=== PATIENT | male | born 1975 | race Caucasian/White ===

== ENCOUNTER 2024-04-28 22:39 | Inpatient (IN) | payer BC, SELFPAY ==
[2024-04-28 23:05] VITALS: BP 118/80; PULSE 86; TEMP 37; O2SAT 94
[2024-04-29 00:28] VITALS: BMI 25.8
--- NOTE | 2024-04-29 02:33 | PC.ADMIT ---
Aubrey was admitted to as a 12B on 15 minute checks. His skin check was unremarkable during skin and safety check. 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 Aubrey came to [place] for a friend's wake, went to a casino, and ended up drinking and using cocaine. He reports that he was thinking of hanging himself, so he sought help at [facility]. Aubrey reports that he smokes cigarettes and drinks a gallon of tequila daily for the last year. He is currently showing signs of alcohol withdrawal and is on a Q4 CIWA. He reported that he has a history of PTSD, Bipolar, and anxiety; he has had 5 psychiatric admissions in [place]. He has no providers, but reports he was taking seroquel recently. Aubrey was able to participate in a minimal assessment upon admission; he ate and retired to bed. Consults have been placed for addiction and NRT. Influenza has been ordered but patient is sleeping at this time and unable to accept or decline.
[2024-04-29 04:30] VITALS: BP 120/74; PULSE 65; RESP 16; TEMP 37.3; O2SAT 95
[2024-04-29] MEDS: LORazepam 1 MG TABLET PO ×4 (04:39→20:48)
[2024-04-29 08:00] VITALS: BP 119/70; PULSE 70; RESP 16; TEMP 37.3; O2SAT 95
--- NOTE | 2024-04-29 08:50 | P.HPPS_ITS ---
HPI Date of Service: 04/29/24 Chief Complaint: Depressive Disorder, Substance Use Disorder Sources of Information: patient interviewed, chart reviewed and crisis/core team assessment reviewed HPI Subjective Notes: Mariscal Warning and Conditional Voluntary Narrative: pt is a 48 yo male with hx of depression, PTSD, possibly bipolar, alcohol and cocaine use disorder who self presents to the ED for alcohol withdrawal or because he had SI. Patient is a poor historian, remains with his eyes closed, irritable in withdrawal and with very limited cooperation. Patient acknowledges that he had the suicidal thought to hang himself a few days ago but says I do not know regarding any current SI. He says he has been depressed for a couple of years but will not elaborate. Denies he is on any medications; denies AVH. Patient reports he drinks alcohol daily ( a gallon of Tequila daily for a year) but denies any history of withdrawal seizures or DTs; says uses cocaine daily. Patient says he has his own place to live here. Patient terminated interview, saying does not feel like talking about anything else this time. Patient seen on 04/29 at 15:00 Past Psychiatric History: past psych admissions (psych/detox?...5 psychiatric admissions in [place]). 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 Aubrey came to [place] for a friend's wake..., went to a casino, and ended up drinking and using cocaine. Substance History: Drinks a gal of Tequila a day for year; cocaine daily Trauma History: Deferred Diagnostics Vital Signs (24Hr): Vital Signs - 24 hr 04/28/24 23:05 04/29/24 04:30 04/29/24 08:00 Temperature 98.6 F 99.1 F 99.1 F Pulse Rate 86 65 70 Respiratory Rate 16 16 Blood Pressure 118/80 120/74 119/70 Pulse Oximetry 94 95 95 Oxygen Delivery Method Room Air Room Air BMI result Body Mass Index 25.8 Meds/Allergies Meds Home Medications ?Medication ?Instructions ?Recorded ?Confirmed ?Type No Known Home Meds 04/29/24 04/29/24 History Allergies Allergies Allergy/AdvReac Type Severity Reaction Status Date / Time No Known Allergies Allergy Verified 04/28/24 21:32 Mental Status Exam Mental Status Exam Narrative: Pt is alert and oriented; behavior is not cooperative, irritable, isolative; patient is not in distress; dressed in hospital attire, unkempt; mood is described as depressed and affect congruent; eye remained close; Speech is sparse but when he talks, normal rate, volume and prosody and not pressured; psychomotor retardation present; thought process is goal directed; Thought content is on resting; no paranoid ideations expressed; says I do not know to SI; Denies AVH and there is no evidence of perceptual disturbance. Patients insight and judgment impaired Assessment & Plan Assessment & Plan (1) Depression: Status: Acute Code(s): F32.A - Depression, unspecified (2) Alcohol abuse: Status: Acute Code(s): F10.10 - Alcohol abuse, uncomplicated (3) Cocaine abuse: Status: Acute Code(s): F14.10 - Cocaine abuse, uncomplicated (4) Alcohol withdrawal: Status: Acute Code(s): F10.939 - Alcohol use, unspecified with withdrawal, unspecified Plan pt is a 48 yo male with hx of depression, PTSD, possibly bipolar, alcohol and cocaine use disorder who self presents to the ED for alcohol withdrawal or because he had SI. Patient is a poor historian, remains with his eyes closed, irritable in withdrawal and with very limited cooperation. Patient acknowledges that he had the suicidal thought to hang himself a few days ago but says I do not know regarding any current SI. He says he has been depressed for a couple of years but will not elaborate. Denies he is on any medications; denies AVH. Patient reports he drinks alcohol daily ( a gallon of Tequila daily for a year) but denies any history of withdrawal seizures or DTs; says uses cocaine daily. Patient says he has his own place to live here. Patient terminated interview, saying does not feel like talking about anything else this time. Formulation/clinical reasoning: Patient is currently not willing to cooperate. He acknowledges depression; and is ambivalent about SI. Patient says he does not want to talk but just wants to rest while he detox is Plan: Twelve B Q 15 minute checks CIWA with p.rbg Ativan Hopefully patient will be more amenable to admission process Thiamine, folic acid Famotidine will consider gabapentin which patient says he has been on before but does not help Patient educated on: diagnosis, medication risk/benefits and substance abuse Informed Consent: understands Reason for continued inpatient stay Substantial Risk for: rapid decompensation Statement Statement: I have reviewed the history and physical and performed a pertinent examination on my patient. No changes have occurred unless specified. If the History and Physical was not performed prior to admission, the Hospitalist's service will be consulted for completing the admission physical. Time Spent With Patient Time: Total time managing care of this patient today ____ minutes.
[2024-04-29] MEDS: hydrOXYzine HCL 25 MG TABLET PO ×2 (09:00→17:06)
[2024-04-29] MEDS: Acetaminophen 325 MG TABLET 650 MG PO ×2 (09:00→17:06)
--- NOTE | 2024-04-29 11:50 | MHC.RECOVRN ---
Received Addiction Medicine consult for positive AUDIT C. Spoke with pts RN, pt not feeling well today. Plan to check in again tomorrow. Lisa Elliott APRN, aware.
[2024-04-29] MEDS: LORazepam 1 MG TABLET 2 MG PO (13:09)
--- NOTE | 2024-04-29 13:53 | HO.PM.IMCN ---
History of Present Illness Data of Consult Service Date: 04/29/24 Primary Care Provider: Unknown Physician HPI Reason for consult: Admission H&P Pt is a 48-year-old male with a PMH significant for? who is admitted to psychiatry unit for . Medical consult for admission H&P. ? Labs reviewed, significant for [facility] Social History Household Members: Other Household Members Other:: Collateral: medical record Housing: Homeless Do you presently have visiting nurse or other home services: No Patient Tobacco Use Status: Current everyday Tobacco user Tobacco use type: Cigarette Smoked in Last 30 Days: Yes e-Cigarette/Vaping Use: Never Used Patient Interested in Nicotine Replacement: Yes Patient Given Instructions on How to Stop Smoking: No Date Education Initiated: 04/29/24 Use of substances other than those prescribed or required for medical reasons: Yes Substance Use Type: Crack/Cocaine Substance Use Frequency: Occasionally Last Used Substance: Days (ago) Currently Displaying Signs/Symptoms of Drug Intoxication Withdrawal: No Advance Directives: No Advance Directives Information Provided: No Do you have thoughts of harming others: None Do you have a plan to hurt others: No Plan Recently lost weight without trying: Unsure Nutrition Risks: No Nutritional Risk Poor oral hygiene: No Meds Allergies Allergy/AdvReac Type Severity Reaction Status Date / Time No Known Allergies Allergy Verified 04/28/24 21:32 Active Medications: Current Medications Acetaminophen (Acetaminophen 325 Mg Tablet) 650 mg PO Q6H PRN PRN Reason: Headache/Pain, Scale 1-10 Last Admin: 04/29/24 09:00 Dose: 650 mg Al Hydroxide/Mg Hydroxide (Magnesium Hydrox/Alum Hydrox 30 Ml Oral.Susp) 30 ml PO Q6H PRN PRN Reason: Heartburn/Nausea Famotidine (Famotidine 20 Mg Tablet) 20 mg PO BID VEGA Folic Acid (Folic Acid 1 Mg Tablet) 1 mg PO DAILY VEGA Last Admin: 04/29/24 09:31 Dose: Not Given Hydroxyzine HCl (Hydroxyzine Hcl 25 Mg Tablet) 25 mg PO Q6H PRN PRN Reason: mild anxiety Last Admin: 04/29/24 09:00 Dose: 25 mg Lorazepam (Lorazepam 1 Mg Tablet) 1 mg PO Q2H PRN PRN Reason: ciwa 6-10 Last Admin: 04/29/24 09:00 Dose: 1 mg Lorazepam (Lorazepam 1 Mg Tablet) 2 mg PO Q2H PRN PRN Reason: ciwa 11-16 Last Admin: 04/29/24 13:09 Dose: 2 mg Lorazepam (Lorazepam 1 Mg Tablet) 3 mg PO Q2H PRN PRN Reason: ciwa 16+ Magnesium Hydroxide (Milk Of Magnesia 30 Ml Oral.Susp) 30 ml PO DAILY PRN PRN Reason: Constipation Multivitamins/Vitamin C (Multivitamin Tablet) 1 tab PO DAILY [facility] Last Admin: 04/29/24 09:31 Dose: Not Given Nicotine Polacrilex (Nicotine Polacrilex 2 Mg Gum) 4 mg BUCCAL Q2H PRN PRN Reason: Nicotine Cravings Thiamine HCl (Thiamine Hcl 100 Mg Tablet) 100 mg PO DAILY [facility] Last Admin: 04/29/24 09:31 Dose: Not Given Trazodone HCl (Trazodone Hcl 50 Mg Tablet) 50 mg PO BEDTIME MRX1 PRN PRN Reason: Insomnia Home Medications ?Medication ?Instructions ?Recorded ?Confirmed ?Last Taken ?Type No Known Home Meds 04/29/24 04/29/24 Unknown History Physical Exam Vital Signs and Narrative: Vital Signs: Last Vital Signs Temp 99.1 F 04/29/24 08:00 Pulse 70 04/29/24 08:00 Resp 16 04/29/24 08:00 BP 119/70 04/29/24 08:00 Pulse Ox 95 04/29/24 08:00 O2 Del Method Room Air 04/29/24 04:30 BMI result Body Mass Index 25.8
[2024-04-29 19:50] VITALS: BP 121/69; PULSE 61; RESP 16; TEMP 36.7; O2SAT 97
[2024-04-29] MEDS: Famotidine 20 MG TABLET PO (20:48)
--- NOTE | 2024-04-30 07:46 | HO.HSGERICON ---
History of Present Illness Data of Consult Service Date: 04/30/24 Requesting physician: Amador Vincent Primary Care Provider: Unknown Physician HPI Reason for consult: medical review Patient is a 48-year-old male, originally from [place], with past medical history of EtOH abuse, cocaine abuse (inhaled), tobacco abuse 1 pack per day for the last 30 years, PTSD and patient is edentulous. Patient would not elaborate on past medical history and was able to give short yes or no answers. Patient overall was cooperative and requested antony wallace often. Patient denies any history of IV drug use. Patient also denies any history of cancer, chronic GI issues including constipation or diarrhea, history of cancer, autoimmune disorders, or surgeries. Patient denies any history of motor vehicle accidents, traumas, gunshot wound stabbing. Patient denies any current skin infections. Patient also denies any history of hepatitis B or C, HIV or STDs. Patient denies the need to be tested for hepatitis or HIV currently. Patient is not aware of his mother or father's past medical history. Patient is agreeable to starting the nicotine patch. Per nursing staff, patient is on the psychiatric facility are able to do nicotine gum as well as the patch and the gum is currently ordered. This telegraphic typewriter operator chief order the nicotine patch Review of Systems Review of Systems: Patient denies chest pain, shortness of breath at rest or with exertion, headaches, visual changes, difficulty swallowing noting patient is edentulous, GERD, diarrhea constipation, nausea, vomiting and denies currently going through alcohol withdrawal. Patient denies any notable edema in lower legs. Patient denies any history of blood clots in the legs or lungs.Patient denies any history of IV drug use. Patient also denies any history of cancer, chronic GI issues, history of cancer, autoimmune disorders, or surgeries. Patient offers that he still has his gallbladder and appendix. Patient denies any history of motor vehicle accidents, traumas, gunshot wounds, stabbing. Patient denies any current skin infections. Patient also denies any history of hepatitis B or C, HIV or STDs. Patient denies the need to be tested for hepatitis or HIV currently. PMFSH Pertinent family history: Patient is not able to provide any family history including current information on patient's parents. Social History Household Members: Other Household Members Other:: Collateral: medical record Housing: Homeless Do you presently have visiting nurse or other home services: No Patient Tobacco Use Status: Current everyday Tobacco user Tobacco use type: Cigarette Smoked in Last 30 Days: Yes e-Cigarette/Vaping Use: Never Used Patient Interested in Nicotine Replacement: Yes Patient Given Instructions on How to Stop Smoking: No Date Education Initiated: 04/29/24 Use of substances other than those prescribed or required for medical reasons: Yes Substance Use Type: Crack/Cocaine Substance Use Frequency: Occasionally Last Used Substance: Days (ago) Currently Displaying Signs/Symptoms of Drug Intoxication Withdrawal: No Advance Directives: No Advance Directives Information Provided: No Do you have thoughts of harming others: None Do you have a plan to hurt others: No Plan Recently lost weight without trying: Unsure Nutrition Risks: No Nutritional Risk Poor oral hygiene: No Sexual orientation: Unable to collect Ebola Risk: Travel/Contact With Anyone From Affected Area/s: No Has Patient Experienced Ebola Symptoms: No Meds Allergies Allergy/AdvReac Type Severity Reaction Status Date / Time No Known Allergies Allergy Verified 04/28/24 21:32 Active Medications: Current Medications Acetaminophen (Acetaminophen 325 Mg Tablet) 650 mg PO Q6H PRN PRN Reason: Headache/Pain, Scale 1-10 Last Admin: 04/29/24 17:06 Dose: 650 mg Al Hydroxide/Mg Hydroxide (Magnesium Hydrox/Alum Hydrox 30 Ml Oral.Susp) 30 ml PO Q6H PRN PRN Reason: Heartburn/Nausea Famotidine (Famotidine 20 Mg Tablet) 20 mg PO BID [facility] Last Admin: 04/29/24 20:48 Dose: 20 mg Folic Acid (Folic Acid 1 Mg Tablet) 1 mg PO DAILY [facility] Last Admin: 04/29/24 09:31 Dose: Not Given Hydroxyzine HCl (Hydroxyzine Hcl 25 Mg Tablet) 25 mg PO Q6H PRN PRN Reason: mild anxiety Last Admin: 04/29/24 17:06 Dose: 25 mg Lorazepam (Lorazepam 1 Mg Tablet) 1 mg PO Q2H PRN PRN Reason: ciwa 6-10 Last Admin: 04/29/24 20:48 Dose: 1 mg Lorazepam (Lorazepam 1 Mg Tablet) 2 mg PO Q2H PRN PRN Reason: ciwa 11-16 Last Admin: 04/29/24 13:09 Dose: 2 mg Lorazepam (Lorazepam 1 Mg Tablet) 3 mg PO Q2H PRN PRN Reason: ciwa 16+ Magnesium Hydroxide (Milk Of Magnesia 30 Ml Oral.Susp) 30 ml PO DAILY PRN PRN Reason: Constipation Multivitamins/Vitamin C (Multivitamin Tablet) 1 tab PO DAILY [facility] Last Admin: 04/29/24 09:31 Dose: Not Given Nicotine Polacrilex (Nicotine Polacrilex 2 Mg Gum) 4 mg BUCCAL Q2H PRN PRN Reason: Nicotine Cravings Thiamine HCl (Thiamine Hcl 100 Mg Tablet) 100 mg PO DAILY [facility] Last Admin: 04/29/24 09:31 Dose: Not Given Trazodone HCl (Trazodone Hcl 50 Mg Tablet) 50 mg PO BEDTIME MRX1 PRN PRN Reason: Insomnia Home Medications ?Medication ?Instructions ?Recorded ?Confirmed ?Last Taken ?Type No Known Home Meds 04/29/24 04/29/24 Unknown History Results Labs Labs: Pt initially refused labs ECG Prior ECG tracings: not available for review Assessment and Plan (1) Alcohol abuse: Status: Acute (2) Cocaine abuse: Status: Acute (3) Edentulous: Status: Acute (4) Tobacco abuse: Status: Acute Plan 1. Alcohol Abuse -CIWA score 1, pt is on CIWA scale -pt refused labs but encourage pt to obtain labs to ensure LFTs are WNL and no other issues occurring as pt has not had any PCP care in many years -continue to follow CISD protocol to include thiamine, FA 2. Cocaine Abuse -Recommend ECG for baseline, pt denies hx of chest pain, current physical symptoms or hx of overdosing -Pt denies using IV drugs and no murmu heard on exam. No current indication for Echo -Addictions consulted per psychiatry 3. Edentulous -residential likely secondary to drug use hx -pt denies issues with swallowing, eating, BMI WNL -pt denies need for dentures 4. Toabcco Abuse -1PPD hx X30 years -no chronic issues, pt does not use inhalers prn or regularly and does not require oxygen -Pt agreeable to nicotine patch, ordered 21 mgs daily (will check with psychiatrist, unclear if there might be a risk with patch) -gum also ordered prn -exam reassuring, no indication for prn tx with inhalers, oxygen -noting pt's age, eventual CT lung screening recommended Hospitalist group will sign off as there are no acute issues currently. Recommend obtaining labs if possible. Please reconsult if needed. Total time managing care of this patient today: 35 minutes. Physical Exam Vital Signs: Last Vital Signs Temp 98.1 F 04/29/24 19:50 Pulse 61 04/29/24 19:50 Resp 16 04/29/24 19:50 BP 121/69 04/29/24 19:50 Pulse Ox 97 04/29/24 19:50 O2 Del Method Room Air 04/29/24 19:50 BMI result Body Mass Index 25.8 ALERT AND ORIENTATED X3, COOPERATIVE BUT PROVIDING SHORT YES/NO ANSWERS. NEURO: CN II-X11 INTACT, NO DEFICITS, VISUAL ACUITY INTACT, CIWA score 1 EYES: PERRLA, EOM INTACT, conjunctivae are pink ENT: HEARING INTACT, NO ISSUES WITH SWALLOWING, UVULA MIDLINE, LIPS MOIST, NARES PATENT NO EPISTAXIS CARDIAC: S1 S2 RRR, NO MURMUR, NO JVD, NO EDEMA IN LOWER EXT PULMONARY: LUNGS CLEAR TO AUSCULATION B ABDOMINAL: BS ACTIVE IN ALL 4 QUADRANTS, NO GUARDING, TENDERNESS, REBOUNDING MSK: STRENGTH 5/5 UPPER AND LOWER EXTREMITIES : NO CVA TENDERNESS NO BLADDER DISTENSION rectal and genital exam deferred EXTREMITIES: NO EDEMA IN LOWER EXTREMITIES, PT AND DP PULSES PALPABLE +2 PSYCH: MOOD FLAT. Pt calm, resting comfortably Skin: no acne, facial damon groomed, no open wounds found on exam Eyes Pupils: Equal, round and reactive pupils present Neuro Cranial nerves: Yes CN's II-XII intact bilaterally, Yes Equal, round and reactive pupils present, Yes Bilaterally intact EOM present, Yes Midline tongue present and Yes Ability to bilaterally elevate shoulders present Cognition (Neuro): normal cognition
[2024-04-30 08:00] VITALS: BP 117/58; PULSE 65; RESP 16; TEMP 36.6; O2SAT 96
[2024-04-30] MEDS: Nicotine 21 MG PATCH.TD24 TRANSDERMA (12:44)
[2024-04-30] MEDS: LORazepam 1 MG TABLET PO ×2 (12:49→20:57)
[2024-04-30] MEDS: Acetaminophen 325 MG TABLET 650 MG PO (12:51)
[2024-04-30] MEDS: Gabapentin 100 MG CAPSULE 200 MG PO ×2 (15:54→20:42)
--- NOTE | 2024-04-30 17:53 | P.PNPSI_ITS ---
Subjective Subjective Date of Service: 04/30/24 Reason For Visit: Depressive Disorder, Substance Use Disorder Interim History: Met with patient; discussed with team Patient scoring mid-range on CIWA; remains isolative. Patient still refuses to talk. He says to this typewriter aligner he does not want to talk, just wants to rest, that he was suicidal but will not discuss it further. Mental Status Exam Mental Status Exam Narrative: Pt is alert and oriented; behavior is not cooperative, irritable, isolative; patient is not in distress; dressed in hospital attire, unkempt; mood is d escribed as depressed and affect congruent; eye remained close; Speech is sparse but when he talks, normal rate, volume and prosody and not pressured; psychomotor retardation present; thought process is goal directed; Thought content is on resting; no paranoid ideations expressed; says I do not know to SI; Denies AVH and there is no evidence of perceptual disturbance. Patients insight and judgment impaired Diagnostics Vital Signs (24Hr): Vital Signs - 24 hr 04/29/24 19:50 04/30/24 08:00 Temperature 98.1 F 98 F Pulse Rate 61 65 Respiratory Rate 16 16 Blood Pressure 121/69 117/58 L Pulse Oximetry 97 96 Oxygen Delivery Method Room Air BMI result Body Mass Index 25.8 Medications Medications Current Medications Acetaminophen (Acetaminophen 325 Mg Tablet) 650 mg PO Q6H PRN PRN Reason: Headache/Pain, Scale 1-10 Last Admin: 04/30/24 12:51 Dose: 650 mg Al Hydroxide/Mg Hydroxide (Magnesium Hydrox/Alum Hydrox 30 Ml Oral.Susp) 30 ml PO Q6H PRN PRN Reason: Heartburn/Nausea Famotidine (Famotidine 20 Mg Tablet) 20 mg PO BID [facility] Last Admin: 04/30/24 12:47 Dose: Not Given Folic Acid (Folic Acid 1 Mg Tablet) 1 mg PO DAILY [facility] Last Admin: 04/30/24 12:47 Dose: Not Given Gabapentin (Gabapentin 100 Mg Capsule) 200 mg PO TID [facility] Stop: 05/02/24 23:50 Last Admin: 04/30/24 15:54 Dose: 200 mg Hydroxyzine HCl (Hydroxyzine Hcl 25 Mg Tablet) 25 mg PO Q6H PRN PRN Reason: mild anxiety Last Admin: 04/29/24 17:06 Dose: 25 mg Lorazepam (Lorazepam 1 Mg Tablet) 1 mg PO Q2H PRN PRN Reason: ciwa 6-10 Last Admin: 04/30/24 12:49 Dose: 1 mg Lorazepam (Lorazepam 1 Mg Tablet) 2 mg PO Q2H PRN PRN Reason: ciwa 11-16 Last Admin: 04/29/24 13:09 Dose: 2 mg Lorazepam (Lorazepam 1 Mg Tablet) 3 mg PO Q2H PRN PRN Reason: ciwa 16+ Magnesium Hydroxide (Milk Of Magnesia 30 Ml Oral.Susp) 30 ml PO DAILY PRN PRN Reason: Constipation Multivitamins/Vitamin C (Multivitamin Tablet) 1 tab PO DAILY [facility] Last Admin: 04/30/24 12:47 Dose: Not Given Nicotine (Nicotine 21 Mg Patch.Td24) 21 mg TRANSDERMA DAILY PRN PRN Reason: smoking cessation Last Admin: 04/30/24 12:44 Dose: 21 mg Nicotine Polacrilex (Nicotine Polacrilex 2 Mg Gum) 4 mg BUCCAL Q2H PRN PRN Reason: Nicotine Cravings Thiamine HCl (Thiamine Hcl 100 Mg Tablet) 100 mg PO DAILY [facility] Last Admin: 04/30/24 12:47 Dose: Not Given Trazodone HCl (Trazodone Hcl 50 Mg Tablet) 50 mg PO BEDTIME MRX1 PRN PRN Reason: Insomnia Allergies Allergies Allergy/AdvReac Type Severity Reaction Status Date / Time No Known Allergies Allergy Verified 04/28/24 21:32 Assessment & Plan Assessment & Plan (1) Depression: Status: Acute Code(s): F32.A - Depression, unspecified (2) Alcohol abuse: Status: Acute Code(s): F10.10 - Alcohol abuse, uncomplicated (3) Cocaine abuse: Status: Acute Code(s): F14.10 - Cocaine abuse, uncomplicated (4) Alcohol withdrawal: Status: Acute Code(s): F10.939 - Alcohol use, unspecified with withdrawal, unspecified Plan pt is a 48 yo male with hx of depression, PTSD, possibly bipolar, alcohol and cocaine use disorder who self presents to the ED for alcohol withdrawal or because he had SI. Patient is a poor historian, remains with his eyes closed, irritable in withdrawal and with very limited cooperation. Patient acknowledges that he had the suicidal thought to hang himself a few days ago but says I do not know regarding any current SI. He says he has been depressed for a couple of years but will not elaborate. Denies he is on any medications; denies AVH. Patient reports he drinks alcohol daily ( a gallon of Tequila daily for a year) but denies any history of withdrawal seizures or DTs; says uses cocaine daily. Patient says he has his own place to live here. Patient terminated interview, saying does not feel like talking about anything else this time. Hospital course: Formulation/clinical reasoning: Patient is currently not willing to cooperate. He acknowledges depression; and is ambivalent about SI. Patient says he does not want to talk but just wants to rest while he detox is 04/30 Patient scoring mid-range on CIWA; remains isolative. Patient still refuses to talk. He says to this typewriter aligner he does not want to talk, just wants to rest, that he was suicidal but will not discuss it further. -will add some gabapentin to help mitigate withdrawal effects as it is also neuroprotective during withdrawal Plan: Twelve B Q 15 minute checks CIWA with p.r.n. Ativan Hopefully patient will be more amenable to admission process Thiamine, folic acid Famotidine will consider gabapentin which patient says he has been on before but does not help Patient educated on: diagnosis, medication risk/benefits and substance abuse Informed Consent: understands Reason for continued inpatient stay Substantial Risk for: rapid decompensation Time Spent With Patient Time: Total time managing care of this patient today ____ minutes.
[2024-04-30 20:00] VITALS: BP 125/63; PULSE 83; RESP 16; TEMP 36.6; O2SAT 95
[2024-04-30] MEDS: Famotidine 20 MG TABLET PO (20:42)
[2024-05-01 07:57] VITALS: BP 123/61; PULSE 62; RESP 16; TEMP 36.9; O2SAT 94
[2024-05-01] MEDS: Multivitamin TABLET 1 TAB PO (08:33)
[2024-05-01] MEDS: Thiamine HCL 100 MG TABLET PO (08:33)
[2024-05-01] MEDS: Famotidine 20 MG TABLET PO ×2 (08:33→20:19)
[2024-05-01] MEDS: Folic Acid 1 MG TABLET PO (08:33)
[2024-05-01] MEDS: LORazepam 1 MG TABLET PO ×4 (08:34→20:19)
[2024-05-01] MEDS: Acetaminophen 325 MG TABLET 650 MG PO (08:34)
[2024-05-01] MEDS: Gabapentin 100 MG CAPSULE 200 MG PO ×3 (08:34→20:19)
--- NOTE | 2024-05-01 09:09 | P.PNPSI_ITS ---
Subjective Subjective Date of Service: 05/01/24 Reason For Visit: Depressive Disorder, Substance Use Disorder Interim History: Met with patient; discussed with team Patient a little less dismissive today; says he still does not want to talk, has a headache but thinks specification writer for asking. Patient feels that withdrawal symptoms are getting less; agreed to discontinuing CIWA (due to consistent minimal scores) and get on on Ativan taper Mental Status Exam Mental Status Exam Narrative: Pt is alert and oriented; behavior is more polite, less irritable; still not ready to engage; isolative; patient is not in distress; dressed in hospital attire, unkempt; mood is described as depressed and affect congruent; eye remained close; Speech is sparse but when he talks, normal rate, volume and prosody and not pressured; psychomotor retardation present; thought process is goal directed; Thought content is on resting; no paranoid ideations expressed; says I do not know to SI; Denies AVH and there is no evidence of perceptual disturbance. Patients insight and judgment impaired Diagnostics Vital Signs (24Hr): Vital Signs - 24 hr 04/30/24 20:00 05/01/24 07:57 Temperature 98 F 98.5 F Pulse Rate 83 62 Respiratory Rate 16 16 Blood Pressure 125/63 123/61 Pulse Oximetry 95 94 Oxygen Delivery Method Room Air Room Air BMI result Body Mass Index 25.8 Medications Medications Current Medications Acetaminophen (Acetaminophen 325 Mg Tablet) 650 mg PO Q6H PRN PRN Reason: Headache/Pain, Scale 1-10 Last Admin: 05/01/24 08:34 Dose: 650 mg Al Hydroxide/Mg Hydroxide (Magnesium Hydrox/Alum Hydrox 30 Ml Oral.Susp) 30 ml PO Q6H PRN PRN Reason: Heartburn/Nausea Famotidine (Famotidine 20 Mg Tablet) 20 mg PO BID [facility] Last Admin: 05/01/24 08:33 Dose: 20 mg Folic Acid (Folic Acid 1 Mg Tablet) 1 mg PO DAILY [facility] Last Admin: 05/01/24 08:33 Dose: 1 mg Gabapentin (Gabapentin 100 Mg Capsule) 200 mg PO TID [facility] Stop: 05/02/24 23:50 Last Admin: 05/01/24 08:34 Dose: 200 mg Hydroxyzine HCl (Hydroxyzine Hcl 25 Mg Tablet) 25 mg PO Q6H PRN PRN Reason: mild anxiety Last Admin: 04/29/24 17:06 Dose: 25 mg Lorazepam (Lorazepam 1 Mg Tablet) 1 mg PO Q2H PRN PRN Reason: ciwa 6-10 Last Admin: 05/01/24 08:34 Dose: 1 mg Lorazepam (Lorazepam 1 Mg Tablet) 2 mg PO Q2H PRN PRN Reason: ciwa 11-16 Last Admin: 04/29/24 13:09 Dose: 2 mg Lorazepam (Lorazepam 1 Mg Tablet) 3 mg PO Q2H PRN PRN Reason: ciwa 16+ Magnesium Hydroxide (Milk Of Magnesia 30 Ml Oral.Susp) 30 ml PO DAILY PRN PRN Reason: Constipation Multivitamins/Vitamin C (Multivitamin Tablet) 1 tab PO DAILY [facility] Last Admin: 05/01/24 08:33 Dose: 1 tab Nicotine (Nicotine 21 Mg Patch.Td24) 21 mg TRANSDERMA DAILY PRN PRN Reason: smoking cessation Last Admin: 04/30/24 12:44 Dose: 21 mg Nicotine Polacrilex (Nicotine Polacrilex 2 Mg Gum) 4 mg BUCCAL Q2H PRN PRN Reason: Nicotine Cravings Thiamine HCl (Thiamine Hcl 100 Mg Tablet) 100 mg PO DAILY [facility] Last Admin: 05/01/24 08:33 Dose: 100 mg Trazodone HCl (Trazodone Hcl 50 Mg Tablet) 50 mg PO BEDTIME MRX1 PRN PRN Reason: Insomnia Allergies Allergies Allergy/AdvReac Type Severity Reaction Status Date / Time No Known Allergies Allergy Verified 04/28/24 21:32 Assessment & Plan Assessment & Plan (1) Depression: Status: Acute Code(s): F32.A - Depression, unspecified (2) Alcohol abuse: Status: Acute Code(s): F10.10 - Alcohol abuse, uncomplicated (3) Cocaine abuse: Status: Acute Code(s): F14.10 - Cocaine abuse, uncomplicated (4) Alcohol withdrawal: Status: Acute Code(s): F10.939 - Alcohol use, unspecified with withdrawal, unspecified Plan pt is a 48 yo male with hx of depression, PTSD, possibly bipolar, alcohol and cocaine use disorder who self presents to the ED for alcohol withdrawal or bec ause he had SI. Patient is a poor historian, remains with his eyes closed, irritable in withdrawal and with very limited cooperation. Patient acknowledges that he had the suicidal thought to hang himself a few days ago but says I do not know regarding any current SI. He says he has been depressed for a couple of years but will not elaborate. Denies he is on any medications; denies AVH. Patient reports he drinks alcohol daily ( a gallon of Tequila daily for a year) but denies any history of withdrawal seizures or DTs; says uses cocaine daily. Patient says he has his own place to live here. Patient terminated interview, saying does not feel like talking about anything else this time. Hospital course: Formulation/clinical reasoning: Patient is currently not willing to cooperate. He acknowledges depression; and is ambivalent about SI. Patient says he does not want to talk but just wants to rest while he detox is 04/30 Patient scoring mid-range on CIWA; remains isolative. Patient still refuses to talk. He says to this specification writer he does not want to talk, just wants to rest, that he was suicidal but will not discuss it further. -will add some gabapentin to help mitigate withdrawal effects as it is also neuroprotective during withdrawal 05/01 Patient a little less dismissive today; says he still does not want to talk, has a headache but thinks specification writer for asking. Patient feels that withdrawal symptoms are getting less; agreed to discontinuing CIWA (due to consistent minimal scores) and get on on Ativan taper Plan: Twelve B Q 15 minute checks DC CIWA Ativan taper Gabapentin taper Thiamine, folic acid Famotidine Patient educated on: diagnosis, medication risk/benefits and substance abuse Informed Consent: understands Reason for continued inpatient stay Substantial Risk for: rapid decompensation Time Spent With Patient Time: Total time managing care of this patient today ____ minutes.
--- NOTE | 2024-05-01 11:56 | MHC.RECOVRN ---
AUDIT-C Brief Intervention Pt had positive screen for unhealthy alcohol use on admission. Attempted to meet with pt to discuss alcohol use and offer resources, pt declined.
--- NOTE | 2024-05-01 12:12 | MHC.RECOVRN ---
Written resources including information on inpatient and outpatient treatment, LILI, harm reduction, and recovery coaching were left with pt at bedside.
[2024-05-01 20:00] VITALS: BP 100/62; PULSE 76; RESP 16; TEMP 36.8; O2SAT 96
[2024-05-02 08:00] VITALS: BP 131/73; PULSE 63; RESP 16; TEMP 36.4; O2SAT 95
[2024-05-02] MEDS: Multivitamin TABLET 1 TAB PO (08:20)
[2024-05-02] MEDS: Folic Acid 1 MG TABLET PO (08:20)
[2024-05-02] MEDS: Thiamine HCL 100 MG TABLET PO (08:21)
[2024-05-02] MEDS: Gabapentin 100 MG CAPSULE 200 MG PO ×2 (08:21→19:52)
[2024-05-02] MEDS: Famotidine 20 MG TABLET PO ×2 (08:21→19:51)
[2024-05-02] MEDS: LORazepam 1 MG TABLET PO ×2 (08:23→19:51)
--- NOTE | 2024-05-02 09:02 | HO.PSYCHPN ---
Subjective Subjective Date of Service: 05/02/24 Reason For Visit: Depressive Disorder, Substance Use Disorder Interim History: met with pt; discussed with team pt says he's doing well, no w/drawal. He denies any SI at all and says i made it all up...i needed somewhere to detox... Pt says he's not actually from [place] and did not travel down here to go to a wake...he says they kept asking me questions so i just made stuff up.. He says he was in [place] at a Program but used crack cocaine and so left program. He was down in [place] and for past 5 days, drinking, gambling and using crack cocaine...He's planning to go back to [place]. Pt denies any hx of SI; does not want any treatment of any kind saying he's tried numerous MAT medications; does not want a program since not sure where he wants to end up. Pt says he wants to DC tomorrow; he has money (bank card) and will get himself a ride. Mental Status Exam Mental Status Exam Narrative: Pt is alert and oriented; behavior is cooperative, friendly and calm; patient is not in distress; dressed in casual attire with unkempt but adequate hygiene; mood is described as good and affect congruent; eye contact appropriate; Speech is normal rate, volume and prosody and not pressured; no psychomotor agitation/retardation present; thought process is organized and goal directed; Thought content is on tx; otherwise pertinent to relevant topics and without any delusional content, paranoid ideations or grandiosity; denies any SI/HI. Denies AVH and there is no evidence of perceptual disturbance. Patients insight and judgment appear intact. Diagnostics Vital Signs (24Hr): Vital Signs - 24 hr 05/01/24 20:00 05/02/24 08:00 Temperature 98.3 F 97.5 F Pulse Rate 76 63 Respiratory Rate 16 16 Blood Pressure 100/62 131/73 Pulse Oximetry 96 95 Oxygen Delivery Method Room Air Room Air BMI result Body Mass Index 25.8 Medications Medications Current Medications Acetaminophen (Acetaminophen 325 Mg Tablet) 650 mg PO Q6H PRN PRN Reason: Headache/Pain, Scale 1-10 Last Admin: 05/01/24 08:34 Dose: 650 mg Al Hydroxide/Mg Hydroxide (Magnesium Hydrox/Alum Hydrox 30 Ml Oral.Susp) 30 ml PO Q6H PRN PRN Reason: Heartburn/Nausea Famotidine (Famotidine 20 Mg Tablet) 20 mg PO BID [facility] Last Admin: 05/02/24 08:21 Dose: 20 mg Folic Acid (Folic Acid 1 Mg Tablet) 1 mg PO DAILY [facility] Last Admin: 05/02/24 08:20 Dose: 1 mg Gabapentin (Gabapentin 100 Mg Capsule) 200 mg PO TID [facility] Stop: 05/02/24 23:50 Last Admin: 05/02/24 08:21 Dose: 200 mg Hydroxyzine HCl (Hydroxyzine Hcl 25 Mg Tablet) 25 mg PO Q6H PRN PRN Reason: mild anxiety Last Admin: 04/29/24 17:06 Dose: 25 mg Lorazepam (Lorazepam 1 Mg Tablet) 1 mg PO TID [facility] Stop: 05/02/24 23:50 Last Admin: 05/02/24 08:23 Dose: 1 mg Lorazepam (Lorazepam 1 Mg Tablet) 1 mg PO BID [facility] Stop: 05/04/24 23:50 Magnesium Hydroxide (Milk Of Magnesia 30 Ml Oral.Susp) 30 ml PO DAILY PRN PRN Reason: Constipation Multivitamins/Vitamin C (Multivitamin Tablet) 1 tab PO DAILY [facility] Last Admin: 05/02/24 08:20 Dose: 1 tab Nicotine (Nicotine 21 Mg Patch.Td24) 21 mg TRANSDERMA DAILY PRN PRN Reason: smoking cessation Last Admin: 04/30/24 12:44 Dose: 21 mg Nicotine Polacrilex (Nicotine Polacrilex 2 Mg Gum) 4 mg BUCCAL Q2H PRN PRN Reason: Nicotine Cravings Thiamine HCl (Thiamine Hcl 100 Mg Tablet) 100 mg PO DAILY [facility] Last Admin: 05/02/24 08:21 Dose: 100 mg Trazodone HCl (Trazodone Hcl 50 Mg Tablet) 50 mg PO BEDTIME MRX1 PRN PRN Reason: Insomnia Allergies Allergies Allergy/AdvReac Type Severity Reaction Status Date / Time No Known Allergies Allergy Verified 04/28/24 21:32 Assessment & Plan Assessment & Plan (1) Depression: Status: Acute Code(s): F32.A - Depression, unspecified (2) Alcohol abuse: Status: Acute Code(s): F10.10 - Alcohol abuse, uncomplicated (3) Cocaine abuse: Status: Acute Code(s): F14.10 - Cocaine abuse, uncomplicated (4) Alcohol withdrawal: Status: Acute Code(s): F10.939 - Alcohol use, unspecified with withdrawal, unspecified Plan pt is a 48 yo male with hx of depression, PTSD, possibly bipolar, alcohol and cocaine use disorder who self presents to the ED for alcohol withdrawal or because he had SI. Patient is a poor historian, remains with his eyes closed, irritable in withdrawal and with very limited cooperation. Patient acknowledges that he had the suicidal thought to hang himself a few days ago but says I do not know regarding any current SI. He says he has been depressed for a couple of years but will not elaborate. Denies he is on any medications; denies AVH. Patient reports he drinks alcohol daily ( a gallon of Tequila daily for a year) but denies any history of withdrawal seizures or DTs; says uses cocaine daily. Patient says he has his own place to live here. Patient terminated interview, saying does not feel like talking about anything else this time. Hospital course: Formulation/clinical reasoning: Patient is currently not willing to cooperate. He acknowledges depression; and is ambivalent about SI. Patient says he does not want to talk but just wants to rest while he detox is 04/30 Patient scoring mid-range on CIWA; remains isolative. Patient still refuses to talk. He says to this comic writer he does not want to talk, just wants to rest, that he was suicidal but will not discuss it further. -will add some gabapentin to help mitigate withdrawal effects as it is also neuroprotective during withdrawal 05/01 Patient a little less dismissive today; says he still does not want to talk, has a headache but thinks comic writer for asking. Patient feels that withdrawal symptoms are getting less; agreed to discontinuing CIWA (due to consistent minimal scores) and get on on Ativan taper 05/02 pt says he's doing well, no w/drawal. He denies any SI at all and says i made it all up...i needed somewhere to detox... Pt says he's not actually from [place] and did not travel down here to go to a wake...he says they kept asking me questions so i just made stuff up.. He says he was in [place] at a Program but used crack cocaine and so left program. He was down in [place] and for past 5 days, drinking, gambling and using crack cocaine...He's planning to go back to [place]. Pt denies any hx of SI; does not want any treatment of any kind saying he's tried numerous MAT medications; does not want a program since not sure where he wants to end up. Pt says he wants to DC tomorrow; he has money (bank card) and will get himself a ride. -denies depression/anxiety; does not want medications or feel need for them Plan: Twelve B Q 15 minute checks DC CIWA Ativan taper Gabapentin taper Thiamine, folic acid Famotidine Patient educated on: diagnosis, medication risk/benefits and substance abuse Informed Consent: understands Reason for continued inpatient stay Substantial Risk for: stable for discharge Time Spent With Patient Time: Total time managing care of this patient today ____ minutes.
[2024-05-02] MEDS: Nicotine 21 MG PATCH.TD24 TRANSDERMA (12:15)
[2024-05-02 19:45] VITALS: BP 140/83; PULSE 72; RESP 15; TEMP 36.7; O2SAT 97
[2024-05-02] MEDS: traZODone HCL 50 MG TABLET PO ×2 (19:54→21:17)
[2024-05-02] MEDS: hydrOXYzine HCL 25 MG TABLET PO (21:17)
[2024-05-03 08:00] VITALS: BP 131/77; PULSE 87; RESP 18; TEMP 36.4; O2SAT 96
--- NOTE | 2024-05-03 08:31 | PM.PSYDC ---
DS: Providers Provider Date of Service: 05/03/24 Date of admission: 04/28/24 22:39 Date of discharge: 05/03/24 Primary care physician: Unknown Physician Attending physician on admission: Amador Vincent Consults: 04/29/24 02:20 Addiction Medicine Provider Routine Consulting Provider: Addiction Covering Reason for consultation: per policy 04/29/24 05:24 Consult to Hospitalist Routine Comment: Consulting Provider: [facility] Hospitalists Reason For Exam: transfer pt Attending physician on discharge: Amador Vincent DS: Diagnosis Discharge Diagnosis (1) Depression: Status: Acute (2) Alcohol abuse: Status: Acute (3) Cocaine abuse: Status: Acute (4) Alcohol withdrawal: Status: Acute DS: Medications Discharge Medications Home Medications: Home Medications ?Medication ?Instructions ?Recorded ?Confirmed No Known Home Meds 04/29/24 04/29/24 Mental Status Exam Mental Status Exam Narrative: Pt is alert and oriented; behavior is cooperative, friendly and calm; patient is not in distress; dressed in casual attire with unkempt but adequate hygiene; mood is described as good and affect congruent; eye contact appropriate; Speech is normal rate, volume and prosody and not pressured; no psychomotor agitation/retardation present; thought process is organized and goal directed; Thought content is on tx; otherwise pertinent to relevant topics and without any delusional content, paranoid ideations or grandiosity; denies any SI/HI. Denies AVH and there is no evidence of perceptual disturbance. Patients insight and judgment appear intact. DS: Summary Hospital Course Hospital Course: HPI pt is a 48 yo male with hx of depression, PTSD, alcohol and cocaine use disorder who self presents to the ED for alcohol withdrawa, during which time he said he had SI. Patient is a poor historian, remains with his eyes closed, irritable in withdrawal and with very limited cooperation. Patient acknowledges that he said he had the suicidal thought to hang himself a few days ago but regarding any current SI? He says I do not know. He says he has been depressed for a couple of years but will not elaborate. Denies he is on any medications; denies AVH. Patient reports he drinks alcohol daily ( a gallon of Tequila daily for a year) but denies any history of withdrawal seizures or DTs; says uses cocaine daily. Patient says he has his own place to live here. Patient terminated interview, saying does not feel like talking about anything else this time. Hospital course: Patient remained on a 12 B. His admission was unremarkable. He detoxed without issue. For the majority of the time he remained isolative, not wanting or willing to talk much about anything. Once withdrawal completed, patient was quite suddenly much more friendly, engaging and cooperative. He denies any SI at all and says i made it all up...i needed somewhere to detox... Pt says he's not actually from [place] and did not travel down here to go to a wake...he says they kept asking me questions so i just made stuff up.. He says he was in [place] at a Program but used crack cocaine and so left program. He was down in [place] and for past 5 days, drinking, gambling and using crack cocaine... He used to drink a gal of Tequila a day but that was years ago and his only alcohol intake was for the previous 5 days. He's planning to go back to [place]. He endorses history of depression but says he ciro with it there does not need medication. Pt denies any hx of SI; does not want any treatment of any kind saying he's tried numerous MAT medications; patient politely declines help with substance abuse programs, saying it is only because he does not know where he wants to end up. Patients 12 B coming due. He was offered to remain on the unit for help with his issues however he again politely declines and wants to discharge tomorrow. He says has money (bank card) and will get himself a ride. Depression resolved. Patient is at baseline. Patient of course remains vulnerable to relapse however this is a longstanding issue for him that will not resolve with longer inpatient stay and patient does not want any further treatment. He has no SI at all and is appropriate to return to the community for treatment. He is not in imminent risk for harm to self or others and request for discharge honored. Time spent discussing smoking cessation with patient: 3 to 10 minutes Status at Discharge Functional status at discharge: independent ambulation Overall status at discharge: patient is back to baseline Time Spent with Patient Time attestation: Total time managing care of this patient today 40____ minutes. Time spent: Greater than 30 minutes Discharge Plan Discharge Anticipated Discharge Date/Time: 05/03/24 11:00 Patient Disposition: Group Home Discharge Diagnosis: MDD, moderate, recurrent, in full remission Referrals: Physician,Radha J [Primary Care Provider] - 1 Week Discharge Medications: No Action No Known Home Meds Discharge Orders: Discharge Order (Routine); Ordered 05/03/24 Ordered By: Amador Vincent Diet: Regular diet Activity on Discharge: As tolerated Stand Alone Forms: Patient Portal Discharge page Print Language: Hebrew Care Plan Goals: Maintain mood and safe behaviors Take medications as prescribed Continue to pursue sobriety Practice coping skills Continue with outpatient providers and reach out to them as needed Health Concerns: Mood stability and behaviors Sobriety Plan of Treatment: Follow up with your PCP and working with psychiatric provider and other outpatient providers regarding above concerns Assessment: Risk assessment at time of discharge:? Patient was interviewed prior to discharge and found to be fully oriented and without any SI or HI. Patient has improved insight and judgment and wants to continue treatment. Patient is not in imminent risk of harm to self or others and has a safety plan that includes presenting to the closest ER or calling 911 if feeling unsafe.? Patient has been observed closely by nursing and unit staff throughout admission; patient has not engaged in any behaviors that suggest dangerousness to self or others and has demonstrated appropriate behaviors and impulse control
[2024-05-03] MEDS: Famotidine 20 MG TABLET PO (08:40)
[2024-05-03] MEDS: Naloxone HCl Nasal TAKE HOME 4 MG SPRAY 8 MG NOSTRILALT (08:42)
== END 2024-05-03 10:30 | disposition home or self-care (01) | DRG 751 ==
PROVIDERS: Admitting Provider Psychiatry & Neurology Psychiatry; Visit Provider Psychiatry & Neurology Psychiatry
DX: F33.1 Major depressive disorder, recurrent, moderate (principal); R45.851 Suicidal ideations; F10.139 Alcohol abuse with withdrawal, unspecified; F17.210 Nicotine dependence, cigarettes, uncomplicated; Z71.6 Tobacco abuse counseling; F14.10 Cocaine abuse, uncomplicated

== ENCOUNTER → 2024-04-28 22:39 | Outpatient (BNV) | payer BC, SELFPAY | PROVIDERS: Admitting Provider Psychiatry & Neurology Psychiatry; Visit Provider Psychiatry & Neurology Psychiatry | DX: F32.2 Major depressive disorder, single episode, severe without psychotic features (principal); F14.10 Cocaine abuse, uncomplicated; F10.939 Alcohol use, unspecified with withdrawal, unspecified | CPT/HCPCS: 90792; 99231; 99232; 99239 ==

== ENCOUNTER → 2024-04-28 22:39 | Outpatient (BNV) | payer BC, SELFPAY | PROVIDERS: Admitting Provider Psychiatry & Neurology Psychiatry; Visit Provider Nurse Practitioner Family | DX: F10.10 Alcohol abuse, uncomplicated (principal); F14.10 Cocaine abuse, uncomplicated; K08.109 Complete loss of teeth, unspecified cause, unspecified class; Z72.0 Tobacco use | CPT/HCPCS: 99222 ==

== ENCOUNTER 2024-05-03 14:35 | Emergency (ER) | payer BC, SELFPAY ==
[2024-05-03 14:45] VITALS: BP 143/92; PULSE 102; O2SAT 96; BMI 29.1
[2024-05-03 14:53] VITALS: BP 140/95; PULSE 95; RESP 18; TEMP 36.3; O2SAT 95
--- NOTE | 2024-05-03 15:27 | MHC.EDTECH ---
This pct assumed care of Patient at 1500 ,ADELA Samano said not to change ,Patient over ,because we are not changing over etoh Patient over any more .
--- NOTE | 2024-05-03 15:47 | ED.ALCOHOL ---
HPI - Alcohol General Chief Complaint: ETOH/Substance Use Stated Complaint: homeless, PD told patient to come to ED Time Seen by Provider: 05/03/24 14:42 Source: patient Limitations: no limitations History of Present Illness ED Provider: Dr. Raymond Romano HPI narrative: 48 yo male with hx of depression, PTSD, alcohol and cocaine use disorder who was treated on our psychiatric service from 04/29/2024 until 05/03/2024 for depression, alcohol use disorder, cocaine use disorder and alcohol withdrawal. Patient was released today. He states that as soon as he was released he started drinking again. Patient states that he is not from this area any had no place to go therefore he return to the emergency department for help. The patient states that his father is willing to give him a bus ticket to get him back home but he has no means to get to the [place] bus station. The patient denied being suicidal or homicidal. He states he does feel safe leaving the emergency department and traveling by bus back to his home in the [facility].. Related Data Home Medications ?Medication ?Instructions ?Recorded ?Confirmed No Known Home Meds 04/29/24 04/29/24 Allergies Allergy/AdvReac Type Severity Reaction Status Date / Time No Known Allergies Allergy Verified 05/03/24 14:47 Review of Systems Review of Systems: Yes all other systems are reviewed and are negative [facility] Past Medical History Medical History (Updated 05/04/24 @ 00:01 by Background Daemon) Alcohol withdrawal Depression Social History Social History Household Members: Other Household Members Other:: Collateral: medical record Housing: Homeless Do you presently have visiting nurse or other home services: No Alcohol intake: current Alcohol intake frequency: 3 or more drinks per day Alcohol type: hard liquor Patient Tobacco Use Status: Current everyday Tobacco user Tobacco use type: Cigarette Smoked in Last 30 Days: Yes e-Cigarette/Vaping Use: Never Used Use of substances other than those prescribed or required for medical reasons: No Substance Use Type: Crack/Cocaine Advance Directives: No Advance Directives Information Provided: No Do you have a plan to hurt others: No Plan Sexual orientation: Unable to collect Physical Exam ED Vital Signs: Vital Signs - 24 hr 05/03/24 14:53 Temperature 97.4 F Pulse Rate 95 Respiratory Rate 18 Blood Pressure 140/95 H Pulse Oximetry 95 Oxygen Delivery Method Room Air BMI result Body Mass Index 29.1 Vital signs revealed an elevated blood pressure of 140/95 otherwise unremarkable. Exam: General: Awake, alert in no distress Head: Normocephalic, atraumatic EENT: PERRL, Lids normal, sclera normal, conjunctiva normal, nose normal , ears normal, throat without erythema or exudates Neck: Supple, no adenopathy Lung: breath sounds symmetric, no wheezing, rales or rhonchi Chest: symmetric movement, nontender Heart: regular rate and rhythm, normal S1, S2 no murmurs or rubs Abdomen: soft, non-tender, nondistended, normal bowel sounds Back: no vertebral tenderness, no CVAT Extremities: no deformities, moves all extremities symmetrically Neuro: Awake, alert, oriented, normal speech, cranial nerves intact, moves all extremities symmetrically Psych: Pleasant, cooperative Medical Decision Making Medical Decision Making MDM Narrative: 48 yo male with hx of depression, PTSD, alcohol and cocaine use disorder who was treated on our psychiatric service from 04/29/2024 until 05/03/2024 for depression, alcohol use disorder, cocaine use disorder and alcohol withdrawal who was discharged this morning and immediately started drinking again. He presents emergency department evaluation in for assistance with transportation to [facility] so that he can get a bus take it to the [facility]. He denies being suicidal or homicidal. He does not appear to be acutely intoxicated. Differential diagnosis: Includes but is not limited to Suicidal ideation, homicidal ideation, depression, alcohol intoxication, polysubstance use disorder Course: The patient does not appear to be acutely intoxicated. He denied being suicidal or homicidal. At this time I do not think that the patient needs a crisis evaluation and he can be safely discharged. Staff was able to give the patient a bus token so that he can get to a [facility]. Patient was discharged with printed and verbal instructions. Admission/Observation Consideration of admission/observation: Escalation of care including admission/observation considered ( no) External Record Review External record reviewed: Inpatient record ( recent psychiatric admission/discharge summaries) Chronic Conditions Patient?s care impacted by: Other ( alcohol use disorder, cocaine use disorder) Discharge Plan Discharge Clinical Impression: Alcohol use disorder Patient Disposition: Home, Self-Care Instructions: Alcohol Use Disorder (ED) Additional Instructions: At this time, I do not think that you need any blood tests or further treatment here in the emergency department. If you feel like you are going to hurt yourself or hurt anyone else, please return to the emergency department for further help. We are going to give you a bus token to get you to the [place] bus station so that you can get a bus ticket back to your home. Alcohol use disorder You were seen in the Emergency Department today for treatment of alcohol use disorder.? If you would like to cut down or stop your alcohol use please consider calling our outpatient Addiction Treatment office:? [facility] ([id number]) [address] [place] [address] ? You have also been given a list of treatment providers in the area that can assist as well.? If you experience seizures, vomiting blood, black stools, falls, severe headache, chest pain, fevers, trouble breathing, hallucinations or any other concerns you need to call 911 or seek immediate care. Please stay hydrated. Prescriptions: No Action No Known Home Meds Interventions: ED Discharge Assessment Last Done: 05/03/24 15:57 Discharge Date/Time: 05/03/24 15:58 Print Language: Albanian
[2024-05-03 15:57] VITALS: BP 140/95; PULSE 95; RESP 18; TEMP 36.3; O2SAT 95
--- NOTE | 2024-05-03 15:57 | PC.NURSE ---
PT WAS SEEN BY MD AND CLEARED FOR DISCHARGE BY PUBLIC TRANSPORT. STEADY GAIT AND CLEAR CONVERSATION NOTED
== END 2024-05-03 15:58 | disposition home or self-care (01) ==
PROVIDERS: Emergency Provider Emergency Medicine Emergency Medical Services
DX: F10.10 Alcohol abuse, uncomplicated (principal); F14.90 Cocaine use, unspecified, uncomplicated; F33.1 Major depressive disorder, recurrent, moderate; F17.210 Nicotine dependence, cigarettes, uncomplicated
CPT/HCPCS: 99283; 99284